=== PATIENT | female | born 1955 ===

== ENCOUNTER 2019-11-05 09:49 | Outpatient (AMBR) | payer MEDICARE, MEDICAID, SELFPAY ==
--- NOTE | 2019-11-05 11:17 | PT.OIERPT ---
PT OP Initial Eval Patient Information Visit Reasons: achilles tendinitis right, left Medical Diagnosis: M25.871; M76.61; M76.62 Treatment Dx #1: Bilateral Ankle Pain Treatment Dx #2: Bilateral Foot Pain Start of Care: 11/05/19 Date of Onset: 7 years ago Initial Assessment Subjective Pt is a 64 y/o female c/o chronic feet pain (05/26) started many years ago with ankle injury from work. Pt did go to therapy but it continues to be painful. Pt's MRI showed plantar fasciitis bilaterally and left achilles tendonosis. Pt has limitation with walking, chores, self care, prolonged standing, cooking, cleaning, and performing ADLs. Objective Bilateral Ankle AROM: all motions are WFL Bilateral Ankle MMTs DF: 4-/5 PF: 4-/5 Invertors: 4-/5 Evertors: 4-/5 Bilateral Hip PROM: all motions are WFL Hip MMTs Glute Med: 3/5 Glute MaxL 3/5 Muscle Length: tight soleus on the right Palpation: TTP bilateral plantar fascia and L achilles near insertion SLS: increase IR of the femur bilaterally with medial collapse of the feet Assessment Pt demonstrate bilateral ankle and foot pain leading to decline function and difficulty with ADLs, chores, and ambulation. Pt will benefit from physical therapy to increase ankle stability, hip strength, and increase flexibility. Short Term and Correction Goals 1) Decrease ankle pain to 2/10 in 6 wks to be able to perform ambulation for 1 hr 2) Increase hip MMTs to 4-/5 in 6 wks to be able to perform chores 3) Increase SLS to 15 sec in 6 wks to be able to perform self care activities 4) Indep with HEP Treatment Plan 1) Manual Therapy 2) Therapeutic Activities 3) Therapeutic Exercises 4) Modalities (ice, heat) 5) Balance Training Frequency and Duration 2 x wk for 6 wks Certification Dates: 11/05/19 to 02/04/20 Office Procedures PT Procedures PT Date of Service: 11/05/19 OP PT Eval Mod Complex 30 minutes: Yes
== END 2019-11-16 23:59 | disposition home or self-care (01) ==
PROVIDERS: PCP Nurse Practitioner; Referring Provider Nurse Practitioner; Visit Provider Podiatrist
DX: M25.871 Other specified joint disorders, right ankle and foot (principal); M79.2 Neuralgia and neuritis, unspecified; M76.62 Achilles tendinitis, left leg; M76.61 Achilles tendinitis, right leg; M25.572 Pain in left ankle and joints of left foot; M25.571 Pain in right ankle and joints of right foot; R26.2 Difficulty in walking, not elsewhere classified
CPT/HCPCS: 97162